=== PATIENT | female | born 1990 | race Caucasian/White ===

== ENCOUNTER 2017-11-07 08:00 | Inpatient (IN) ==
[2017-11-07] MEDS ORDERED: Metoclopramide 10 MG/2 ML VIAL IVP PRN (08:24)
[2017-11-07] MEDS ORDERED: Ondansetron 4 MG/2 ML VIAL IVP PRN ×2 (08:24→13:11)
[2017-11-07] MEDS ORDERED: *HR* Nalbuphine 10 MG/ML AMPUL IVP PRN (08:24)
[2017-11-07] MEDS ORDERED: Famotidine 20 MG/2 ML VIAL IVP PRN (08:24)
[2017-11-07] MEDS ORDERED: miSOPROStol 25 MCG TABLET VG PRN (08:24)
[2017-11-07] MEDS ORDERED: Naloxone 0.4 MG/ML INJ IVP PRN ×2 (08:24→13:11)
[2017-11-07] MEDS ORDERED: Ringers Solution, Lactated 1,000 ML IVC SCH (08:30)
--- NOTE | 2017-11-07 08:35 | OB/GYN History & Physical ---
Date of Encounter: 11/07/17 Time of Encounter: 08:30 Assessment and Plan (1) First in adolescent 16 years of age or older in third trimester Current visit: Yes Status: Acute (2) 39 weeks gestation of Current visit: Yes Status: Acute (3) Elective induction of labor planned Current visit: Yes Status: Acute Patient will be induced with a Navarro catheter and Cytotec plan is to anticipate vaginal delivery (4) History of intravenous drug use in remission Current visit: Yes Status: Acute History of Present Illness HPI: Ms. Green is a 26 year old female 1 para 0 at 39 and one sevenths weeks who presented for induction of labor secondary to an with favorable cervix. 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 She has been very compliant and doing well. Patient had occasional contractions no leaking of fluid no vaginal bleeding. Patient is aware that the baby will have to stay 5 days. Patient is of a history of vulvar condyloma but does not have any obstruction to the vaginal opening. Patient is GBS negative, Rh+, rubella positive, Varicella Equivocal. Past Med Surg Social Fam HX - Past Medical History Source: patient, old records reviewed Medical history: no medical history Psychiatric history: anxiety - Past Surgical History Surgical History: other (Tonsils and adenoids, nasal surgery) - Social History Smoking Status: Current every day smoker Smokeless Tobacco Status: No Alcohol use: none Drug use: marijuana, IV Drug Use, other (IV heroin, currently on Subutex) Occupational status: unemployed Current living situation: Home - Independent Activity Level: Independent ambulation Recent Out of Country Travel Within the Last 8 Weeks: No Exposure or Possible Exposure to Illness During Travel: No - Additional Family History Additional family history: Family history noncontributory Obstetrical History - Pregnancies : 1 Para: 0 Livin Medications and Allergies Buprenorphine HCl [Subutex] 8 mg SL BID 11/07/17 [History] 3 Allergy/AdvReac Type Severity Reaction Status Date / Time No Known Allergies Allergy Verified 11/07/17 08:35 Exam - Constitutional Constitutional: well developed, well nourished, no acute distress, average body habitus - HEENT HEENT: EOMI, PERRL, Mucus Membranes Moist - Neck Neck exam: full ROM - Lungs Respiratory exam: CTAB - Cardiovascular Cardiovascular exam: RRR - Cervix Dilation: 5 Effacement: 80 Station: 0 (25 g Cytotec placed vaginally, heart tones 140s reactive contractions every 5-7 minutes) Results All other labs normal. - VTE Reasons for not Prescribing Prophylaxis: Treatment not Indicated - Low risk for VTE
[2017-11-07 08:48] LABS: Basophils % 0.2 %; Eosinophils # 0.1 K/mcL (0.0-0.6); Eosinophils % 1.1 %; Hematocrit 34.9 % (35.3-44.9); Hemoglobin 11.8 g/dL (11.5-15.4); Immature Granulocytes % 0.5 % (0-4); Lymphocytes # 2.6 K/mcL (0.6-4.6); Lymphocytes % 28.7 %; Mean Corpuscular HGB Conc 33.8 g/dL (31.6-35.5); Mean Corpuscular Hemoglobin 31.1 pg (28.0-33.3); Mean Corpuscular Volume 91.8 fL (83.0-100.0); Mean Platelet Volume 10.8 fL (9.4-12.4); Monocytes # 0.8 K/mcL (0.0-1.3); Monocytes % 8.2 %; Neutrophils # 5.6 K/mcL (1.6-8.9); Platelet Count 147 K/mcL (140-400); Red Cell Distribution Width 13.1 % (11.5-14.5); Segmented Neutrophils % 61.3 %
[2017-11-07] MEDS ORDERED: *HR* Buprenorphine HCl 8 MG TAB.SUBL SL SCH (09:15)
[2017-11-07 09:52] LABS: Amphetamine Screen,Urine Negative ng/mL (Cutoff=1000); Barbiturate Screen,Urine Negative ng/mL (Cutoff=200); Benzodiazepines Screen,Urine Negative ng/mL (Cutoff=200); Cannabinoid Screen,Urine Positive ng/mL (Cutoff = 50); Cocaine Screen,Urine Negative ng/mL (Cutoff= 300); Opiate Screen,Urine Negative ng/mL (Cutoff=300); Phencyclidine Screen,Urine Negative ng/mL (Cutoff=25)
--- NOTE | 2017-11-07 11:23 | Anesthesia Evaluation PreOp ---
Date of Encounter: 11/07/17 Time of Encounter: 11:46 - Past History Planned Operation: ANIYA Cardiac History: Denies any Significant Hx Pulmonary History: Smoker (1/2 pk/day) CATHODIC PROTECTION TECHNICIAN History: Denies Any Significant HX Other Medical History: Denies Any Significant HX, Other (hx heroine use active until 3mos . Subutex since this time) Anesthesia History: No Prior Anesthetic Complications, Past Anesthesia ( adenoidectomy) : Yes Alcohol Use: none Drug use: marijuana, IV Drug Use, other (IV heroin, currently on Subutex) Medications and Allergies Buprenorphine HCl [Subutex] 8 mg SL BID 11/07/17 [History] 3 Allergy/AdvReac Type Severity Reaction Status Date / Time No Known Allergies Allergy Verified 11/07/17 08:35 - Meds/Allergy Pre-op Review Medications Reviewed: Yes Allergies Reviewed: Yes Beta Blockers on Current Med List: No Anesthesia Results - Labs 11/07/17 08:28 Anesthesia Exam BP 135/87 P 65 T 97.8 R 16 Height: 5'4" Weight: 58.9kg NPO (# of Hours): 2 Pain Scale: 3 Pain Scale Used: Numeric (1 - 10) - HEENT Pupil (Motor): Pupils equal Mallampati: II Teeth: Normal Oral Opening: Greater than 3 - CATHODIC PROTECTION TECHNICIAN LOC: Oriented CATHODIC PROTECTION TECHNICIAN Motor: Normal RUE, Normal LUE, Normal RLE, Normal LLE, Normal Face CATHODIC PROTECTION TECHNICIAN Sensory: Normal: RUE, LUE, RLE, LLE, Face - Cardiac Rhythm: Regular Murmur: None JVD: No Carotid Bruit: No - Pulmonary Breath Sounds: bilateral Clear Respiratory Effort: Symmetrical Anesthesia Assess/Plan ASA Score: 2 Modified Sch[place] Scale for Level of Consciousness: Cooperative, oriented, and tranquil Anesthetic Plan: Regional Autologous Blood: No Monitoring Plan: Standard Monitors Recovery Plan: Other
[2017-11-07] MEDS ORDERED: *HR* FentaNYL (PF) 100 MCG/2 ML VIAL EP ONE (13:11)
[2017-11-07] MEDS ORDERED: EPHEDrine 50 MG/ML VIAL IVP PRN (13:11)
[2017-11-07] MEDS ORDERED: Bupivacaine-MPF 0.25% 10 ML VIAL EP ONE (13:11)
[2017-11-07] MEDS ORDERED: Epidural Premix (fent/bupiv) 110 ML EP SCH (13:15)
[2017-11-07] MEDS ORDERED: Epidural Premix (fent/bupiv) 110 ML EP ONE (13:15)
[2017-11-07] MEDS ORDERED: Lidocaine -MPF 1% 5 ML AMPUL ONE (13:16)
[2017-11-07] MEDS ORDERED: Bupivacaine-MPF 0.25% 10 ML VIAL ONE (13:16)
[2017-11-07] MEDS ORDERED: *HR* FentaNYL (PF) 100 MCG/2 ML VIAL ONE (13:16)
--- NOTE | 2017-11-07 13:51 | Anesthesia Procedures ---
Date of Encounter: 11/07/17 Time of Encounter: 13:18 Procedures: Anesthesia - Epidural/Spinal Patient ID/Chart reviewed: Yes Patient examined: Yes OB Eval: Gestational age: 39 OB Eval: : 1 OB Eval: Hx Para: 0 OB Eval: Dilated at (cm): 6 OB Eval: Contractions: Non-stressed pattern Consent Obtained: Yes Site Prep: Aseptic Technique, Sterile prep and drape, Povidone-Iodine 1% Patient position: upright Local Anesthetic: Lidocaine 1% Amount of Local Anesthetic used: 3 Touhy Needle Gauge: 18 Touhy Needle Depth (cm): 4 Catheter Depth at Skin (cm): 12 Test Dose (1.5% Lido + Epi): Volume given (mls): 3 Test Dose Result: Negative Loading Dose: 0.25% Marcaine (mls): 10 Loading Dose: Fentanyl (mcg): 100 Loading Dose Administered: Thru Catheter Infusion Med: 0.125% Bupivacaine w/ 2 mcg/ml Fentanyl Infusion Rate (mls/hr): [address]: Tegaderm, Tape Interspace Used: L4-L5 Loss of Resistance (KAVITHA): Yes Blood: No CSF: No Paresthesia: No Procedure: ANIYA placed 1st pass without any immediate noted complications. VSS and FHT stable throughout. Vitals + FHT's: 1318 BP 121/67 P 58 R 16 1341 BP 123/74 P 58 R 16 FHT 120s
[2017-11-07] MEDS ORDERED: Oxytocin 20 units/ LR 1000 mL 20 UNIT/1,000 ML BAG IVC ONE (14:13)
[2017-11-07] MEDS ORDERED: Ibuprofen 600 MG TABLET PO ONE (15:25)
[2017-11-07] MEDS ORDERED: Acetaminophen 325 MG TABLET PO PRN (15:28)
[2017-11-07] MEDS ORDERED: Benzocaine/Menthol 56 GM AEROSOL SPRAY TP PRN (15:28)
[2017-11-07] MEDS ORDERED: Oxytocin 20 units/ LR 1000 mL 20 UNIT/1,000 ML BAG IVC SCH (15:28)
[2017-11-07] MEDS: Ibuprofen 600 MG TABLET PO PRN ×2 (15:37→23:00)
--- NOTE | 2017-11-07 18:38 | OB Labor Progress Note ---
Date of Encounter: 11/07/17 Time of Encounter: 12:55 Labor Progress Note - Subjective Subjective: Patient states she is getting more uncomfortable but tolerating the contractions - Cervix Cervix: 6/90/0 - Heart Tones Heart Tones: heart tones 140s reactive - Guadalupe Guerra Guadalupe Guerra: Contractions every 3-5 minutes - Plan Plan: Anticipate vaginal delivery
--- NOTE | 2017-11-07 18:41 | OB/GYN Procedure Note ---
Delivery - Delivery Date: 11/07/17 Provider: Teddy Mcmillan Intrapartum events: none Delivery induction: AROM, misoprostol Delivery augmentation: rupture of membranes Delivery monitor: external FHT, external uterine Anesthesia: local, epidural Quantitated Blood Loss: 100 - Infant (s) A Infant Delivery Date: 11/07/17 Infant Delivery Time: 14:41 Position: DAVID Gender: Male Viability: Viable Pounds: 6 Ounces: 7 Weight Gram: 2.91 kg at 1 minute: 8 at 5 mins: 9 Shoulder Dystocia: encountered Specimens collected: cord blood (with vulvar condyloma) Placenta: spontaneous Cord: 3 umbilical vessels - Repair Episiotomy: midline Laceration Description: None - Complications Delivery complications: none Delivery comments: Patient is a 26-year-old 1 para 0 at 39-2/7 weeks who presented for induction of labor secondary term with favorable cervix patient was 4- 5 cm on admission patient was given vaginal Cytotec and approximately 4 hours later was noted to be 6 cm she was artificially ruptured minimal fluid noted but it was clear she did receive an epidural after this patient progressed rapidly started having deep variable decelerations a patient with anterior lip the had the patient stop pushing patient was able to reduce the lip tones continued to fluctuate up and down but would return back to normal in between contractions patient was noted to have multiple condyloma on the perineum that she had large ones on the posterior fourchette which I felt were counted be a problem for delivery it was decided this time with tones being down an episiotomy would probably be needed and a wedge resection was performed removing this large condyloma. We then just extended incision and a little bit more to make extra room. With the next push patient was able to deliver a viable male infant in left occiput anterior presentation at 1441. There was no nuchal cord, no meconium, was bulb suctioned on the abdomen, Apgars were 8 at one and 9 at one, infant weight was 6 lbs. 7 oz. Placenta was then delivered spontaneously with a three-vessel cord, care transition coordinator Dr. Mcmillan, anesthesia epidural local, estimated blood loss was 100 mL. Midline episiotomy was then repaired with a 3-0 Monocryl in usual fashion cervix and vagina was visualized intact. Patient tolerated delivery well she will be observed 2 hours before being taken the floor. - Disposition Mom disposition: stable in LDR [place] disposition: stable in LDR
[2017-11-07] MEDS: *HR* Buprenorphine HCl 8 MG TAB.SUBL SL SCH (20:07)
[2017-11-08 08:39] VITALS: BP 134/82
[2017-11-08] MEDS: *HR* Buprenorphine HCl 8 MG TAB.SUBL SL SCH (08:52)
[2017-11-08] MEDS ORDERED: Prenatal Vit/FA 1 EACH TABLET PO SCH (09:00)
--- NOTE | 2017-11-08 09:33 | Discharge Summary ---
Date of Encounter: 11/08/17 Time of Encounter: 09:30 - Discharge Diagnosis (1) Vaginal delivery Priority: Primary Status: Acute Comments: Doing well. Ambulating and voiding without difficulty. Tolerating regular diet. Lochia light and without clots. States pain well controlled with po meds. in arms, bottle feeding with no problems. - Discharge Medications Prescriptions: Ibuprofen [Motrin] 600 mg PO Q6HR PRN #30 tablet PRN Reason: Cramping Docusate [Colace] 100 mg PO BID #20 capsule Home Medications: Buprenorphine HCl [Subutex] 8 mg SL BID 11/07/17 [History] Acetaminophen [Tylenol] 650 mg PO Q6HR PRN tablet 11/08/17 [Rx] Benzocaine/Menthol Dunn [Dermoplast Dunn] 1 appl TP QID PRN aerosol 11/08/17 [Rx] Docusate [Colace] 100 mg PO BID #20 capsule 11/08/17 [Rx] Hydrocortisone/Pramoxine [Epifoam] 1 appl TP TID bottle 11/08/17 [Rx] Ibuprofen [Motrin] 600 mg PO Q6HR PRN #30 tablet 11/08/17 [Rx] Vit/FA 1 each PO DAILY tablet 11/08/17 [Rx] Allergies/Adverse Reactions: 3 Allergy/AdvReac Type Severity Reaction Status Date / Time No Known Allergies Allergy Verified 11/07/17 08:35 Data Procedures and tests throughout hospitalization: Laboratory Tests 11/07/17 11/07/17 08:28 08:28 WBC 9.2 RBC 3.80 L Hgb 11.8 Hct 34.9 L MCV 91.8 MCH 31.1 MCHC 33.8 RDW 13.1 Plt Count 147 MPV 10.8 Immature Gran % 0.5 Seg Neutrophils % 61.3 Lymphocytes % 28.7 Monocytes % 8.2 Eosinophils % 1.1 Basophils % 0.2 Neutrophils # 5.6 Lymphocytes # 2.6 Monocytes # 0.8 Eosinophils # 0.1 Basophils # 0.0 Urine Opiates Screen Negative Ur Barbiturates Screen Negative Ur Phencyclidine Scrn Negative Ur Amphetamines Screen Negative U Benzodiazepines Scrn Negative Urine Cocaine Screen Negative U Marijuana (THC) Screen Positive H Labs on day of discharge: Labs from last 24 hours 11/07/17 08:28 Urine Opiates Screen Negative Ur Barbiturates Screen Negative Ur Phencyclidine Scrn Negative Ur Amphetamines Screen Negative U Benzodiazepines Scrn Negative Urine Cocaine Screen Negative U Marijuana (THC) Screen Positive H Date of admission: 11/07/17 08:06 Primary care physician: PCP NONE Consults: 11/07/17 15:28 Consult to Public Health Physician [CONS] Routine Comment: Vaginal delivery, consult needed Discharging clinician: Edwige Tatum - Patient Status Disposition: Home, Self-Care Condition: Good Functional capacity at discharge: independent ambulation Overall status at discharge: patient is progressing back to baseline - Discharge Instructions Follow Up With: Teddy Mcmillan DO [Partnered Physician] - - Diet and Activity Activity: resume usual activities as tolerated Diet: advance to your usual diet Hospital Course Episiotomy: midline Time Attestation: Total time spent providing and/or coordinating discharge services: Exam - Constitutional Vitals: Temp Pulse Resp BP Pulse Ox 97.6 F 65 14 134/82 99 11/08/17 08:38 11/08/17 08:38 11/08/17 08:38 11/08/17 08:38 11/08/17 08:38 General appearance IM: cooperative, A&O X 3, no acute distress, answers questions appropriately - Respiratory Respiratory exam: Present: CTAB - Cardiovascular Cardiovascular exam IM: Present: RRR - GI/Abdominal GI/Abdominal exam IM: normal bowel sounds - Rectal Rectal exam: deferred - Extremities Exam Extremities exam IM: Present: full ROM, normal inspection, radial pulses palpable and symmetrical - Neurological Exam Neurological exam: alert, normal gait, oriented X3
== END 2017-11-08 11:46 | disposition home or self-care (01) | DRG 560 ==
LOC: 1NENULAB 08:06 → 1NENUOBS 17:21
PROVIDERS: ADMIT Obstetrics & Gynecology; ATTEND Obstetrics & Gynecology